=== PATIENT | female | born 1925 | race Caucasian/White ===

== ENCOUNTER 2016-07-30 19:26 | Emergency (ER) | payer MEDICARE, BC ==
[2016-07-30 14:57] LABS: WBC (NOT ORDERED) (RFLEX) 0 (0-5)
[2016-07-30 15:01] LABS: BASOPHILS 0.4 %; BASOPHILS ABSOLUTE 0.02 10/3/uL (0.0-0.16); EOSINOPHILS 4.1 %; ER CBC TAT 0 Hrs 07 Mins; HEMATOCRIT 34.4 % (36.0-48.0); HEMOGLOBIN 11.2 g/dL (12.0-16.0); LYMPHOCYTES 21.2 %; LYMPHOCYTES ABSOLUTE 1.04 10/3/uL (0.67-4.30); MEAN CORPUS HGB CONC 32.6 g/dL (32.0-36.0); MEAN CORPUSCULAR VOLUME 92.2 fL (80-100); MEAN PLATELET VOLUME 11.3 fL (9.2-13.0); MONOCYTES 6.7 %; MONOCYTES ABSOLUTE 0.33 10/3/uL (0.21-1.20); NEUTROPHILS 67.6 %; NEUTROPHILS ABSOLUTE 3.32 10/3/uL (2.02-8.40); PLATELET COUNT 220 10/3/uL (150-400); RBC DISTRIBUTION WIDTH 14.4 % (12.0-16.0); RED CELL COUNT 3.73 10/6/uL (4.0-5.6); WHITE BLOOD CELLS 4.9 10/3/uL (4.5-10.5)
[2016-07-30 15:02] LABS: MANUAL DIFF NO %
[2016-07-30 15:08] LABS: ASCORBIC ACID (UR NOT ORDER) NEG (NEG); BILIRUBIN, URINE NEGATIVE (NEG); ER URINALYSIS TAT 0 Hrs 14 Mins; KETONE, URINE NEGATIVE (NEG); LEUKOCYTE ESTERASE(NOT OR NEG (NEG); NITRITE (URINE) NEG (NEG)
[2016-07-30 15:18] LABS: A/G RATIO 0.9 (0.7-1.9); ALBUMIN 3.6 G/DL (3.5-5.0); ALKALINE PHOSPHATASE 71 U/L (45-117); BUN (BLOOD UREA NITROGEN) 28 MG/DL (6-23); CHLORIDE, SERUM 110 MMOL/L (96-112); CO2 (CARBON DIOXIDE) 23 MMOL/L (24-34); GFR AFRICAN AMERICAN 24 ML/MIN (>=60); GFR NON AFRICAN AMERICAN 20 ML/MIN (>=60); GLUCOSE, SERUM 139 MG/DL (60-99); POTASSIUM, SERUM 4.8 MMOL/L (3.5-5.3); SGOT(AST) 11 U/L (5-40); SGPT(ALT) 20 U/L (5-65); SODIUM, SERUM 141 MMOL/L (135-148); TOTAL BILIRUBIN 0.3 MG/DL (0-1.2); TOTAL PROTEIN 7.6 G/DL (6.0-8.5); TROPONIN I 0.02 NG/ML (<0.05)
[~2016-07-30 19:26] MED LIST: ADALAT CC90 MG PO; ADVIL PO; ASAB PO; CIP5 PO; CLARIT10 PO; DCN100 PO; FOSAMAX70 MG PO; L20 PO; LOTE20 PO; LOTE40 PO; MOTRIN PM PO; MUCINEX600 MG PO; NAP500 PO; NIFEDIAC CC60 MG PO; NORCO1 TA1 PO; NORV5 PO; OTC PAIN MED PO; PR25 PO; PRILO PO; PRIN20 PO; T PO; VISINE0.05 % OPH; ZOCOR20 PO; ZOCOR40 PO; ZYRTEC ALLGY10 MG PO
== END 2016-07-30 20:18 | disposition home or self-care (01) ==
LOC: ER 19:26
PROVIDERS: Emergency Medicine
DX: F03.90 Unspecified dementia, unspecified severity, without behavioral disturbance, psychotic disturbance, mood disturbance, and anxiety (principal); I10 Essential (primary) hypertension; Z88.5 Allergy status to narcotic agent; Z79.82 Long term (current) use of aspirin
CPT/HCPCS: 71020; 80053; 81001; 84484; 85025; 87040; 93005; 99285